=== PATIENT | female | born 2005 ===

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

== ENCOUNTER → 2025-04-10 | Outpatient (CLI) | payer OTHER ==
[2025-04-10 14:53] LABS: BASOPHILS ABSOLUTE AUTO 0.02 K/mm3 (0.00-0.23); BASOPHILS PERCENT AUTO 0 % (0-2); EOSINOPHILS ABSOLUTE AUTO 0.08 K/mm3 (0.00-0.68); EOSINOPHILS PERCENT AUTO 2 % (0-6); Hematocrit 41.8 % (33.0-51.0); Hemoglobin 13.1 g/dL (11.5-16.0); IMMATURE GRAN ABSOLUTE AUTO 0.02 K/mm3 (0.00-0.10); IMMATURE GRAN PERCENT AUTO 0 % (0-1); LYMPHOCYTES ABSOLUTE AUTO 2.06 K/mm3 (0.84-5.20); LYMPHOCYTES PERCENT AUTO 43 % (21-46); MONOCYTES ABSOLUTE AUTO 0.19 K/mm3 (0.16-1.47); MONOCYTES PERCENT AUTO 4 % (4-13); Mean Corpuscular HGB 25.2 pg (26.0-34.0); Mean Corpuscular HGB Conc 31.3 g/dL (31.5-36.5); Mean Corpuscular Volume 80 fL (80-100); Mean Platelet Volume 11.9 fL (9.1-12.4); NEUTROPHILS ABSOLUTE AUTO 2.38 K/mm3 (1.96-9.15); NEUTROPHILS PERCENT AUTO 50 % (41-73); Platelet Count 276 K/mm3 (150-400); RDW Standard Deviation 40.6 fL (35.1-46.3); White Blood Cell Count 4.75 K/mm3 (4.00-11.30)
[2025-04-10 16:35] LABS: Alanine Aminotransfer (ALT/SGP 52 U/L (12-78); Albumin, Blood 3.9 g/dL (3.4-5.0); Alk Phos 85 U/L (50-136); Anion Gap 8 mmol/L (3-11); Aspartate Aminotrans (AST/SGOT 24 U/L (12-37); Bilirubin, Total 0.4 mg/dL (0.1-1.0); Blood Urea Nitrogen 8 mg/dL (8-24); Bun/Creatinine Ratio 15.5 (12.0-20.0); CHOL/HDL RATIO 3.4; CO2, Blood 25 mmol/L (21-32); Calcium, Blood 9.4 mg/dL (8.5-10.1); Chloride, Blood 109 mmol/L (98-108); Cholesterol 163 mg/dL (50-200); Creatinine, Blood 0.52 mg/dL (0.40-1.00); Globulin, Blood 3.8 g/dL (2.2-4.0); Glomerular Filtration Rate 136 (60-); Glucose, Blood 89 mg/dL (70-99); HDL Cholesterol 48 mg/dL (>39); LDL/HDL RATIO 1.9; Low Density Lipoprotein Chol 90 mg/dL (0-110); Potassium, Blood 3.8 mmol/L (3.5-5.5); Prolactin 34.1 ng/mL; Sodium, Blood 138 mmol/L (136-145); Total Protein, Blood 7.7 g/dL (6.4-8.2); Triglycerides 126 mg/dL (30-140); Very Low Density Lipoprot Chol 25 mg/dL (6-28)
[2025-04-12 19:14] LABS: DHEAS 237 ug/dL (148-407)
[2025-04-13 08:36] LABS: 17-HYDROXYPROGESTERONE 31.92 ng/dL (<=206.00)
[2025-04-15 13:53] LABS: TESTOSTERONE BY MASS SPEC 21 ng/dL (9-55)
== END ==
LOC: LAB 12:39 → LAB SHORT 12:39
PROVIDERS: General Practice
DX: E28.2 Polycystic ovarian syndrome (principal); L83 Acanthosis nigricans
CPT/HCPCS: 36415; 80053; 80061; 82627; 82947; 83036; 83498; 84146; 84403; 84443; 85025